=== PATIENT | male | born 2000 | race Caucasian/White ===

== ENCOUNTER 2022-12-06 15:38 | Emergency (ER) | payer SELFPAY ==
--- OUTSIDE RECORDS SUMMARY | 2022-12-06 15:41 | XMS REPORT | Continuity of Care Document ---
:2000 Author Organization [facility] t Address [address] [facility] [address] [place] [address] Care Team Providers Name Role Phone Mayo Elizabeth Attending Clinician Unavailable Payers Payer Name Policy Type Policy Number Effective Date Expiration Date S ource Problems Condition Condition Condition Status Onset Resolution Last Treating Co mments Source Name Details Category Date Date Treatment Clinician Date Problem Condition [facility] Allergies, Adverse Reactions, Alerts This patient has no known allergies or adverse reactions. Social History Social Habit Start Date Stop Date Quantity Comments Source Sex Assigned At [birth year] Male [facility] 00:00:00 00:00:00 [facility] Smoking Status Start Date Stop Date Source Unknown if ever smoked [facility] Medications This patient has no known medications. Procedures This patient has no known procedures. Encounters Start End Encounter Admission Attending Care Care Encounter Source Date/Time Date/Time Type Type Clinicians Facility Department ID 2020-01-20 2020-01-20 Dep[facility]ed [facility] [id number] 19:15:00 20:15:[address]-EMERGEN l [facility] 2020-01-20 2020-01-20 Emergency ER [place] [id number] [facility] [facility] [address] 19:15:00 19:15:00 Mayo -[phone] Danielito [facility] Results This patient has no known results.
--- NOTE | 2022-12-06 16:59 | ER ---
Nurse's Notes [facility] Name: Dallas Legre Age: 22 yrs Sex: Male : 2000 Arrival Date: 12/06/2022 Time: 15:38 Bed 20 Private MD: Diagnosis: Diffuse otitis externa, right ear;Acute serous otitis media, right ear Presentation: 12/06 16:07 Chief complaint: Patient states: right ear pain X2 days. Pt states that the pain cm10 radiates down his jaw. No fevers. Coronavirus screen: Vaccine status: Patient reports being unvaccinated. Client denies travel out of the [place] in the last 14 days. Ebola Screen: Patient denies travel to an Ebola-affected area in the 21 days before illness onset. No symptoms or risks identified at this time. Initial Sepsis Screen: Does the patient meet any 2 criteria? No. Patient's initial sepsis screen is negative. Does the patient have a suspected source of infection? No. Patient's initial sepsis screen is negative. Risk Assessment: Do you want to hurt yourself or someone else? Patient reports no desire to harm self or others. Onset of symptoms was December 04, 2022. 16:07 Method Of Arrival: Ambulatory cm10 16:07 Acuity: SONAL 4 cm10 Triage Assessment: 16:09 General: Appears in no apparent distress. uncomfortable, Behavior is calm, cooperative. cm10 Pain: Complains of pain in right ear. EENT: Reports pain in right ear. Neuro: No deficits noted. Level of Consciousness is awake, alert, Oriented to person, place, time, situation. Respiratory: No deficits noted. Airway is patent Respiratory effort is even, unlabored, Respiratory pattern is regular, symmetrical. Historical: - Allergies: 16:09 No Known Allergies; cm10 - Home Meds: 16:09 None [Active]; cm10 - PMHx: 16:09 None; cm10 - PSHx: 16:09 None; cm10 - Immunization history:: Adult Immunizations unknown. - Social history:: Smoking status: Reported history of juuling and/or vaping. Screenin:17 [facility] ED Fall Risk Assessment (Adult) History of falling in the last 3 months, bp including since admission No falls in past 3 months (0 pts). Abuse screen: Denies threats or abuse. Denies injuries from another. Nutritional screening: No deficits noted. Tuberculosis screening: No symptoms or risk factors identified. Assessment: 16:17 General: SEE TRIAGE NOTE. bp 16:18 Reassessment: No changes from previously documented assessment. Patient and/or family ll1 updated on plan of care and expected duration. Pain level reassessed. Patient is alert, oriented x 3, equal unlabored respirations, skin warm/dry/pink. 17:00 Reassessment: Requested Ofloxacin from pharmacy, awaiting pharmacy delivery. bp 17:14 Reassessment: Patient appears in no apparent distress at this time. Patient and/or bp family updated on plan of care and expected duration. Pain level reassessed. Patient is alert, oriented x 3, equal unlabored respirations, skin warm/dry/pink. Vital Signs: 16:07 BP 135 / 79; Pulse 86; Resp 16; Temp 98.1; Pulse Ox 99% ; Weight 111.13 kg; Height 5 cm10 ft. 7 in. ; Pain 9/10; 17:14 BP 138 / 72; Pulse 84; Resp 16; Pulse Ox 99% on R/A; bp 17:57 BP 131 / 80; Pulse 66; Resp 16; Pulse Ox 98% on R/A; bp 16:07 Body Mass Index 38.37 (111.13 kg, 170.18 cm) cm10 16:07 Pain Scale: Adult cm10 ED Course: 15:41 Patient arrived in ED. rg4 15:44 Cesar Flowers MD is Attending Physician. park 16:09 Triage completed. cm10 16:09 Arm band placed on Patient placed in waiting room. cm10 16:16 Teofilo Queen, ABHIJEET is Primary Nurse. bp 16:17 Patient has correct armband on for positive identification. Bed in low position. Call bp light in reach. Side rails up X2. Provided Education on: N/A. 16:18 Patient placed in an exam room, on a stretcher. ll1 16:57 Leticia Streeter MD is Referral Physician. park 17:58 No provider procedures requiring assistance completed. Patient did not have IV access bp during this emergency room visit. Administered Medications: 17:00 Drug: Rocephin (cefTRIAXone) IM 1 grams Route: IM; Site: left deltoid; bp 17:57 Follow up: Response: No adverse reaction bp 17:00 Drug: Amoxicillin-Clavulanate PO 875 mg Route: PO; bp 17:57 Follow up: Response: No adverse reaction bp 17:00 Drug: [place] PO 10 mg-325 mg 1 tabs Route: PO; bp 17:57 Follow up: Response: No adverse reaction bp 17:57 Drug: Ofloxacin Ophthalmic Drops 0.3 % 4 drops {Note: right ear.} Route: Ophthalmic; bp Site: right eye; 17:57 Follow up: Response: No adverse reaction bp Medication: 16:17 VIS not applicable for this client. bp Outcome: 16:59 Discharge ordered by . park 17:58 Discharged to home ambulatory, with family. bp 17:58 Condition: stable 17:58 Discharge instructions given to patient, Instructed on discharge instructions, follow up and referral plans. medication usage, Demonstrated understanding of instructions, follow-up care, medications, Prescriptions given X 4. 17:58 Patient left the ED. bp Signatures: Cesar Flowers MD MD cha Garcia, Rubi rg4 Teofilo Queen, RN RN bp Yael Cervantes RN RN ll1 Libertad Araiza RN RN cm10
--- NOTE | 2022-12-06 16:59 | EDPHYS ---
Physician Documentation [facility] Name: Dallas Leger Age: 22 yrs Sex: Male : 2000 Arrival Date: 12/06/2022 Time: 15:38 Bed 20 Private MD: ED Physician Cesar Flowers HPI: 12/06 16:48 This 22 yrs old Male presents to ER via Ambulatory with complaints of Ear park Pain. 16:48 The patient presents with pain, tenderness. The complaints affect the right ear. Onset: park The symptoms/episode began/occurred 3 day(s) ago. Modifying factors: The symptoms are alleviated by nothing, the symptoms are aggravated by pulling on ears. Associated signs and symptoms: The patient has no apparent associated signs or symptoms. Severity of symptoms: At their worst the symptoms were moderate in the emergency department the symptoms are unchanged. The patient has not experienced similar symptoms in the past. Historical: - Allergies: 16:09 No Known Allergies; cm10 - Home Meds: 16:09 None [Active]; cm10 - PMHx: 16:09 None; cm10 - PSHx: 16:09 None; cm10 - Immunization history:: Adult Immunizations unknown. - Social history:: Smoking status: Reported history of juuling and/or vaping. ROS: 16:54 Constitutional: Negative for fever, chills, and weight loss, Eyes: Negative for injury, park pain, redness, and discharge, Neck: Negative for injury, pain, and swelling, Cardiovascular: Negative for chest pain, palpitations, and edema, Respiratory: Negative for shortness of breath, cough, wheezing, and pleuritic chest pain, Abdomen/GI: Negative for abdominal pain, nausea, vomiting, diarrhea, and constipation, Back: Negative for injury and pain, : Negative for injury, bleeding, discharge, and swelling, MS/Extremity: Negative for injury and deformity, Skin: Negative for injury, rash, and discoloration, Neuro: Negative for headache, weakness, numbness, tingling, and seizure, Psych: Negative for depression, anxiety, suicide ideation, homicidal ideation, and hallucinations, Allergy/Immunology: Negative for hives, rash, and allergies, Endocrine: Negative for neck swelling, polydipsia, polyuria, polyphagia, and marked weight changes. 16:54 ENT: Positive for ear pain. Exam: 16:54 Constitutional: This is a well developed, well nourished patient who is awake, alert, park and in no acute distress. Head/Face: Normocephalic, atraumatic. Eyes: Pupils equal round and reactive to light, extra-ocular motions intact. Lids and lashes normal. Conjunctiva and sclera are non-icteric and not injected. Cornea within normal limits. Periorbital areas with no swelling, redness, or edema. Neck: Trachea midline, no thyromegaly or masses palpated, and no cervical lymphadenopathy. Supple, full range of motion without nuchal rigidity, or vertebral point tenderness. No Meningismus. Chest/axilla: Normal chest wall appearance and motion. Nontender with no deformity. No lesions are appreciated. Cardiovascular: Regular rate and rhythm with a normal S1 and S2. No gallops, murmurs, or rubs. Normal PMI, no JVD. No pulse deficits. Respiratory: Lungs have equal breath sounds bilaterally, clear to auscultation and percussion. No rales, rhonchi or wheezes noted. No increased work of breathing, no retractions or nasal flaring. Abdomen/GI: Soft, non-tender, with normal bowel sounds. No distension or tympany. No guarding or rebound. No evidence of tenderness throughout. Back: No spinal tenderness. No costovertebral tenderness. Full range of motion. Male : Normal genitalia with no discharge or lesions. Skin: Warm, dry with normal turgor. Normal color with no rashes, no lesions, and no evidence of cellulitis. MS/ Extremity: Pulses equal, no cyanosis. Neurovascular intact. Full, normal range of motion. Neuro: Awake and alert, GCS 15, oriented to person, place, time, and situation. Cranial nerves II-XII grossly intact. Motor strength 5/5 in all extremities. Sensory grossly intact. Cerebellar exam normal. Normal gait. Psych: Awake, alert, with orientation to person, place and time. Behavior, mood, and affect are within normal limits. 16:54 ENT: External ear(s): cellulitis, erythema, that is moderate, of the right ear canal, TM's: erythema, that is moderate, on the right, Nose: is normal, Mouth: is normal, no acute changes, Lips: normal, Oral mucosa: normal, Gums: normal with healthy appearance, Tongue: is normal. Vital Signs: 16:07 BP 135 / 79; Pulse 86; Resp 16; Temp 98.1; Pulse Ox 99% ; Weight 111.13 kg; Height 5 cm10 ft. 7 in. ; Pain 9/10; 17:14 BP 138 / 72; Pulse 84; Resp 16; Pulse Ox 99% on R/A; bp 17:57 BP 131 / 80; Pulse 66; Resp 16; Pulse Ox 98% on R/A; bp 16:07 Body Mass Index 38.37 (111.13 kg, 170.18 cm) cm10 16:07 Pain Scale: Adult cm10 MDM: 15:44 Patient medically screened. park 16:55 Differential diagnosis: otitis media, otitis externa, ruptured TM. Data reviewed: vital park signs, nurses notes. Consideration of Admission/Observation Escalation of care including admission/observation considered. I considered the following discharge prescriptions or medication management in the emergency department Medications were administered in the Emergency Department. See MAR. Test considered but Not performed: Labs: no cbc, no comp met. Historians other than the Patient: Spouse/Significant Other: spouse informed. Care significantly affected by the following chronic conditions: none. Administered Medications: 17:00 Drug: Rocephin (cefTRIAXone) IM 1 grams Route: IM; Site: left deltoid; bp 17:57 Follow up: Response: No adverse reaction bp 17:00 Drug: Amoxicillin-Clavulanate PO 875 mg Route: PO; bp 17:57 Follow up: Response: No adverse reaction bp 17:00 Drug: [place] PO 10 mg-325 mg 1 tabs Route: PO; bp 17:57 Follow up: Response: No adverse reaction bp 17:57 Drug: Ofloxacin Ophthalmic Drops 0.3 % 4 drops {Note: right ear.} Route: Ophthalmic; bp Site: right eye; 17:57 Follow up: Response: No adverse reaction bp Disposition Summary: 12/06/22 16:59 Discharge Ordered Location: Home park Problem: new park Symptoms: have improved park Condition: Stable park Diagnosis - Diffuse otitis externa, right ear park - Acute serous otitis media, right ear park Followup: park - With: Private Physician - When: 2 - 3 days - Reason: Recheck today's complaints, Continuance of care, Re-evaluation by your physician Followup: park - With: Leticia Streeter MD - When: 2 - 3 days - Reason: Recheck today's complaints, Re-evaluation by your physician Discharge Instructions: - Discharge Summary Sheet park - Ear Drops, Adult park - Otitis Media, Adult park - Otitis Externa park - Otitis Externa, [id number] park - Otitis Media, Adult, [id number] park - Ear Drops, Adult, [id number]-[id number] [facility] Forms: - Medication Reconciliation Form [facility] - Thank You Letter [facility] - Antibiotic Education [facility] - Prescription Opioid Use [facility] - [email or web address] [facility] Prescriptions: - acetaminophen-codeine 300-30 mg Oral tablet - take 2 tablet by ORAL route every 6 hours; 20 tablet; Refills: 0, Product [facility] Selection Permitted - ofloxacin 0.3 % Ophthalmic drops - instill 1 drop by OTIC route 3 times per day for 7 days 4 hours and 6 hours park after retiring; 10 milliliter; Refills: 0, Product Selection Permitted - Augmentin 875-125 mg Oral Tablet - take 1 tablet by ORAL route every 12 hours for 10 days; 20 tablet; Refills: 0, [facility] Product Selection Permitted - Medrol (Michael) 4 mg Oral Tablets, Dose Pack - take 1 tablet by ORAL route as directed - follow package instructions; 1 park packet; Refills: 0, Product Selection Permitted Signatures: Cesar Flowers MD MD cha Peltier, Brian, RN RN Libertad Charles RN RN cm10
[2022-12-06] MEDS ORDERED: AMOX/K CLAV 875 MG TAB ONE (17:03)
[2022-12-06] MEDS ORDERED: LIDOCAINE 1% MPF 2 ML AMPULE ONE (17:03)
[2022-12-06] MEDS ORDERED: HYDROCODONE/APAP 10/325 TAB ONE (17:03)
[2022-12-06] MEDS ORDERED: CEFTRIAXONE 1000 MG/VIAL ONE (17:03)
[2022-12-06] MEDS ORDERED: OFLOXACIN OPH 0.3%-5 ML BTL OTIC SCH (17:15)
[2022-12-06 18:26] VITALS: TEMP 98.1
[2022-12-06 18:29] VITALS: BP 131/80; O2SAT 98
== END 2022-12-06 17:58 | disposition home or self-care (01) ==
LOC: ER 15:38
DX: H60.311 Diffuse otitis externa, right ear (principal); H65.01 Acute serous otitis media, right ear
CPT/HCPCS: 96372; 99284; J0696